=== PATIENT | female | born 1965 | race African-American/Black ===

== ENCOUNTER 2017-12-07 21:57 | Emergency (ER) | payer MEDICARE, MEDICAID ==
[~2017-12-07] VITALS: Ht 160 cm; Wt 82.0 kg
[~2017-12-07 21:57] MED LIST: ASPIRIN; FISH OIL; HYDROCHLOROTHIAZIDE; INSULIN; LIPITOR; METOPROLOL; SYNTHROID; VASOTEC
[2017-12-07 22:35] VITALS: BP 138/70
== END 2017-12-07 23:01 | disposition left against medical advice (07) ==
LOC: ER 22:07
DX: E16.2 Hypoglycemia, unspecified (principal); Z53.21 Procedure and treatment not carried out due to patient leaving prior to being seen by health care provider
CPT/HCPCS: 82962